=== PATIENT | male | born 1970 | race African-American/Black ===

== ENCOUNTER 2018-09-11 13:45 | Emergency (ER) | payer BC ==
[~2018-09-11] VITALS: Ht 190.5 cm; Wt 103.4 kg
[2018-09-11 13:54] VITALS: Ht 190.5 cm; Wt 103.4 kg
[2018-09-11 14:39] LABS: BASOPHIL % 0.9 % (0-2); PLATELET COUNT 200 x10^3mcL (130-400)
[2018-09-11 14:45] LABS: CALCIUM 8.7 mg/dL (8.5-10.1); CARBON DIOXIDE 29.7 mmol/L (21-32); CHLORIDE SERUM 105 mmol/L (98-107); CREATININE SERUM 1.3 mg/dL (0.7-1.3); GFR1 > 60 mL/min; GLUCOSE SERUM 93 mg/dL (74-106); POTASSIUM SERUM 4.3 mmol/L (3.5-5.1); SODIUM SERUM 139 mmol/L (136-145)
[2018-09-11 14:50] LABS: ALBUMIN 3.7 g/dL (3.4-5.0); ALKALINE PHOSPHATASE 41 U/L (46-116); ALT/SGPT 21 U/L (16-63); AST/SGOT 16 U/L (15-37); BILIRUBIN TOTAL 0.5 mg/dL (0.20-1.00); TOTAL PROTEIN, SERUM 7.5 g/dL (6.4-8.2)
[2018-09-11 15:00] LABS: FREE T4 0.87 ng/dL (0.76-1.46); FREE THYROXINE INDEX 2.1 ug/dL (1.4-4.5); T4(THYROXINE) 6.2 ug/dL (4.7-13.3)
[2018-09-11 15:13] LABS: T3 TOTAL 0.92 ng/mL
[2018-09-11 15:45] VITALS: BP 126/108
== END 2018-09-11 16:19 | disposition home or self-care (01) ==
LOC: ED 13:45
PROVIDERS: Emergency Medicine
DX: R42 Dizziness and giddiness (principal); R51 Headache
CPT/HCPCS: 36415; 84439

== ENCOUNTER 2018-12-21 01:54 | Emergency (ER) | payer BC ==
[~2018-12-21] VITALS: Ht 190.5 cm; Wt 103.4 kg
[2018-12-21 01:57] VITALS: Ht 190.5 cm; Wt 103.4 kg
[2018-12-21 04:12] VITALS: BP 125/80
== END 2018-12-21 04:12 | disposition home or self-care (01) ==
LOC: ED 01:54
DX: S76.811A Strain of other specified muscles, fascia and tendons at thigh level, right thigh, initial encounter (principal); I10 Essential (primary) hypertension; X50.9XXA Other and unspecified overexertion or strenuous movements or postures, initial encounter; Y93.89 Activity, other specified; Y92.89 Other specified places as the place of occurrence of the external cause; Y99.8 Other external cause status
CPT/HCPCS: Q0092